=== PATIENT | female | born 1985 | race Caucasian/White ===

== ENCOUNTER 2017-02-21 20:42 | Emergency (ER) | payer OTHER ==
[2017-02-21] MEDS: ALBUTEROL 0.083% (NEB) 2.5 MG/3 ML AMP HHN (22:35)
[2017-02-21 23:07] LABS: ADD UMIC YES; UR ASCORBIC ACID NEGATIVE (NEGATIVE); UR BACTERIA MODERATE /HPF (NONE SEEN); UR BILIRUBIN (Dip) NEGATIVE (NEGATIVE); UR BLOOD (Dip) NEGATIVE (NEGATIVE); UR CLARITY CLOUDY (CLEAR); UR COLOR YELLOW (YELLOW); UR GLUCOSE (Dip) NEGATIVE (NEGATIVE); UR KETONES (Dip) NEGATIVE (NEGATIVE); UR LEUKOCYTE ESTERASE (Dip) 3+ Leu/ul (NEGATIVE); UR NITRITE (Dip) POSITIVE (NEGATIVE); UR RBC 2 /HPF (0-5); UR SPECIFIC GRAVITY (Dip) 1.009 (1.003-1.030); UR TOTAL PROTEIN (Dip) NEGATIVE (NEGATIVE); UR UROBILINOGEN (Dip) NEGATIVE (NEGATIVE); UR WBC 48 /HPF (0-5)
[2017-02-21] MEDS: ACETAMINOPHEN 325 MG TAB PO (23:15)
[2017-02-21] MEDS: CEPHALEXIN 500 MG CAP PO (23:15)
== END 2017-02-22 01:14 | disposition home or self-care (01) ==
LOC: FTE 02-22 01:14
DX: N30.00 Acute cystitis without hematuria (principal); J06.9 Acute upper respiratory infection, unspecified; Z91.040 Latex allergy status
CPT/HCPCS: 73562; 81001; 94664; 99284-25

== ENCOUNTER 2017-04-29 21:37 | Emergency (ER) | payer BC, OTHER ==
[2017-04-30] MEDS: ACETAMINOPHEN 500 MG TAB PO (04:12)
[2017-04-30] MEDS: ONDANSETRON (ODT) 4 MG TAB ODT (04:12)
== END 2017-04-30 04:41 | disposition home or self-care (01) ==
LOC: FTE 21:37
DX: B34.9 Viral infection, unspecified (principal); J45.909 Unspecified asthma, uncomplicated
CPT/HCPCS: 71045; 99283-25